=== PATIENT | male | born 1950 | race African-American/Black ===

== ENCOUNTER 2021-03-07 10:14 | Inpatient (IN) | payer OTHER ==
[~2021-03-07] VITALS: Ht 188 cm; Wt 101.2 kg
[2021-03-07] MEDS ORDERED: SODIUM CHLORIDE 0.9% 500 ML IVB ONE (10:45)
[2021-03-07 10:59] LABS: Urine Bacteria NONE SEEN /hpf (None Seen); Urine Blood 3+ /uL (Negative); Urine Mucus FEW (None Seen); Urine WBC 3636 /hpf (0 - 3); Urine WBC Clumps PRESENT /hpf (None Seen)
[2021-03-07 11:07] LABS: Urine Specific Gravity 1.018 (1.001-1.035)
[2021-03-07 11:19] LABS: Basophils # (auto) 0 10 ^3/uL (0-0.2); Basophils % (auto) 0.2 % (0.0-2.0); Eosinophils # (auto) 0 10 ^3/uL (0-0.8); Eosinophils % (auto) 0.1 % (0.0-7.0); Hematocrit 40.5 % (41.0-53.0); Hemoglobin 13.4 g/dL (13.5-17.5); Lymphocytes # (auto) 0.8 10 ^3/uL (0.4-5.4); Lymphocytes % (auto) 4.9 % (10.0-50.0); Mean Corpuscular Hemoglobin 28.7 pg (28.0-32.0); Mean Corpuscular Hgb Conc. 33.2 g/dL (32.0-36.0); Mean Corpuscular Volume 86.6 fL (80.0-100.0); Monocytes # (auto) 1.7 10 ^3/uL (0-1.3); Monocytes % (auto) 9.5 % (0.0-12.0); Neutrophils # (auto) 14.9 10 ^3/uL (1.6-8.6); Neutrophils % (auto) 85.3 % (37.0-80.0); Red Blood Cells 4.68 10^6/uL (4.5-5.90); Red Cell Distribution Width 14.4 % (11.8-14.3); White Blood Cell 17.4 10^3/uL (4.4-10.8)
[2021-03-07 11:27] LABS: Amphetamine Screen, Urine NEGATIVE (NEGATIVE); Barbiturate Scree,Urine NEGATIVE (NEGATIVE); Benzodiazephine Screen, Urine NEGATIVE (NEGATIVE); Cannabinoid Screen, Urine NEGATIVE (NEGATIVE); Cocaine Screen, Urine NEGATIVE (NEGATIVE); Opiate Scree,Urine NEGATIVE (NEGATIVE); Phencyclidine Screen, Urine NEGATIVE (NEGATIVE)
[2021-03-07 11:45] LABS: Albumin 2.4 g/dL (3.4-5.0); Anion Gap 6 (5-15); Blood Urea Nitrogen 43 mg/dL (7-18); Calcium 8.4 mg/dL (8.5-10.1); Carbon Dioxide 24 mmol/L (21-32); Chloride 101 mmol/L (98-107); Magnesium 2.4 mg/dL (1.6-2.6); Potassium 5.3 mmol/L (3.5-5.1); Sodium 131 mmol/L (136-145)
[2021-03-07 11:53] LABS: Alanine Aminotransferase 29 U/L (16-61); Alkaline Phosphatase 66 U/L (45-117); Aspartate Aminotransferase 69 U/L (15-37); BUN/Creatinine Ratio 22.1; Bilirubin, Total 0.6 mg/dL (0.2-1.0); Blood Alcohol < 3.0 mg/dL (0-5); GFR African American 44 mL/min; GFR Non-African American 36 mL/min; Glucose 106 mg/dL (74-106); Total Protein 7.7 g/dL (6.4-8.2)
[2021-03-07] MEDS ORDERED: cefTRIAXone 1GM/50ML D5W 50 ML IV ONE (12:00)
[2021-03-07] MEDS ORDERED: MORPHINE SULFATE INJECTION 2 MG/ML SYRG IV PRN ×3 (13:15→14:30)
[2021-03-07] MEDS ORDERED: NITROGLYCERIN 0.4 MG SL TAB SL PRN ×2 (13:15→14:30)
[2021-03-07] MEDS ORDERED: DOCUSATE SOD 100 MG CAP PO PRN (14:30)
[2021-03-07] MEDS ORDERED: hydrALAZINE HCL 20 MG/ML VL IV PRN (14:30)
[2021-03-07] MEDS ORDERED: ONDANSETRON HCL 4 MG/2 ML VIAL IV PRN (14:30)
[2021-03-07] MEDS ORDERED: ACETAMINOPHEN 325 MG TAB PO PRN (14:30)
[2021-03-07] MEDS ORDERED: InsuLIN REG 1unit/0.01ml Soln (100units/ml) IV ONE (14:30)
[2021-03-07] MEDS ORDERED: CALCIUM GLUC 1,000mg/50ml-NS 50 ML IV ONE (14:30)
[2021-03-07] MEDS ORDERED: FUROSEMIDE 20 MG/2 ML VIAL IV ONE (14:30)
[2021-03-07] MEDS ORDERED: DEXTROSE (50%) 50ML SYRG IV PRN (14:30)
[2021-03-07] MEDS ORDERED: SODIUM ZIRCONIUM CYCL 10 GM PAK PO ONE ×2 (14:30→15:45)
[2021-03-07] MEDS ORDERED: ALBUTEROL SULF 2.5 MG/0.5ML(0.5%) NEB SOLN NEB ONE (14:30)
[2021-03-07] MEDS ORDERED: ALUM & MAG HYDROX-SIMETH LIQ(MAALOX) 30 ML PO PRN (14:30)
[2021-03-07] MEDS ORDERED: DEXTROSE (50%) 50ML SYRG IV ONE (14:30)
[2021-03-07] MEDS ORDERED: LORazepam 0.5 MG TAB PO PRN (14:30)
[2021-03-07 15:51] LABS: Cholesterol 157 mg/dL (< 200); HDL Cholesterol 26 mg/dL (40-59); LDL Cholesterol 107 mg/dL (< 100); Triglycerides 126 mg/dL (< 150)
[2021-03-07] MEDS: SODIUM CHLORIDE 0.9% 1,000 ML IV SCH (16:19)
[2021-03-07] MEDS: ACCU-CHEK COMFORT CURVE STRIP VI SCH ×2 (17:00→22:06)
[2021-03-07] MEDS: InsuLIN REG 1unit/0.01ml Soln (100units/ml) SC SCH (17:00)
[2021-03-07 20:00] VITALS: BP 129/71
[2021-03-07] MEDS: HYDROcodone-ACET 5/325MG TAB PO PRN (20:14)
[2021-03-07] MEDS ORDERED: LORazepam 2MG/ML-1ML VIAL IV PRN (21:00)
[2021-03-07 21:46] LABS: Folate (Folic Acid) 13.75 ng/mL (5.38-24)
[2021-03-07 22:00] VITALS: BP 129/71
[2021-03-07] MEDS ORDERED: InsuLIN REG 1unit/0.01ml Soln (100units/ml) SC SCH (22:00)
[2021-03-07] MEDS: FAMOTIDINE (10MG/ML) 2ML VL IV SCH (22:06)
[2021-03-07] MEDS: ATORVASTATIN 20 MG TAB PO SCH (22:06)
[2021-03-08 04:48] VITALS: BP 122/60
[2021-03-08] MEDS: InsuLIN REG 1unit/0.01ml Soln (100units/ml) SC SCH (06:17)
[2021-03-08] MEDS: ACCU-CHEK COMFORT CURVE STRIP VI SCH (06:17)
[2021-03-08] MEDS: SODIUM CHLORIDE 0.9% 1,000 ML IV SCH ×2 (07:30→22:08)
[2021-03-08 08:11] LABS: Basophils # (auto) 0 10 ^3/uL (0-0.2); Basophils % (auto) 0.1 % (0.0-2.0); Eosinophils # (auto) 0.1 10 ^3/uL (0-0.8); Eosinophils % (auto) 0.8 % (0.0-7.0); Hematocrit 36.4 % (41.0-53.0); Hemoglobin 11.9 g/dL (13.5-17.5); Lymphocytes # (auto) 0.9 10 ^3/uL (0.4-5.4); Lymphocytes % (auto) 5.6 % (10.0-50.0); Mean Corpuscular Hemoglobin 28.1 pg (28.0-32.0); Mean Corpuscular Hgb Conc. 32.7 g/dL (32.0-36.0); Monocytes % (auto) 11.8 % (0.0-12.0); Neutrophils # (auto) 13.6 10 ^3/uL (1.6-8.6); Neutrophils % (auto) 81.7 % (37.0-80.0); Red Blood Cells 4.23 10^6/uL (4.5-5.90); Red Cell Distribution Width 14.5 % (11.8-14.3); White Blood Cell 16.7 10^3/uL (4.4-10.8)
[2021-03-08 08:28] LABS: INR 1.08 (0.9-1.15); Partial Thromboplastin Time 31.1 sec (23.0-31.2)
[2021-03-08 08:31] LABS: Albumin 2.2 g/dL (3.4-5.0); Anion Gap 9 (5-15); Blood Urea Nitrogen 35 mg/dL (7-18); Calcium 8.2 mg/dL (8.5-10.1); Carbon Dioxide 23 mmol/L (21-32); Chloride 105 mmol/L (98-107); Glucose 115 mg/dL (74-106); Magnesium 2.3 mg/dL (1.6-2.6); Potassium 3.2 mmol/L (3.5-5.1); Sodium 137 mmol/L (136-145)
[2021-03-08 08:37] LABS: Alanine Aminotransferase 32 U/L (16-61); Alkaline Phosphatase 63 U/L (45-117); Aspartate Aminotransferase 41 U/L (15-37); BUN/Creatinine Ratio 26.3; Bilirubin, Total 0.4 mg/dL (0.2-1.0); GFR African American 68 mL/min; GFR Non-African American 56 mL/min; Phosphorus 3.2 mg/dL (2.5-4.90); Total Protein 6.9 g/dL (6.4-8.2)
[2021-03-08 09:00] VITALS: BP 119/60
[2021-03-08] MEDS: cefTRIAXone 1GM/50ML D5W 50 ML IV SCH (09:50)
[2021-03-08] MEDS: FAMOTIDINE (10MG/ML) 2ML VL IV SCH (09:50)
[2021-03-08] MEDS: ASPirin 81 mg TAB PO SCH (09:50)
[2021-03-08] MEDS: ENOXAPARIN SOD 40 MG/0.4 ML SYRINGE SC SCH (09:51)
[2021-03-08] MEDS: HYDROcodone-ACET 5/325MG TAB PO PRN (09:52)
[2021-03-08] MEDS ORDERED: POTASSIUM CHL 20 Meq TABLET PO ONE (11:00)
[2021-03-08] MEDS ORDERED: ERGOCALCIFEROL 50,000 UNIT(1.25MG) CAP PO SCH (11:00)
[2021-03-08 13:02] VITALS: BP 109/59
[2021-03-08 17:00] VITALS: BP 118/60
[2021-03-08] MEDS: TAMSULOSIN HYDROCHLORIDE 0.4 MG CAP PO SCH (18:27)
[2021-03-08 22:00] VITALS: BP 133/67
[2021-03-08] MEDS: ATORVASTATIN 20 MG TAB PO SCH (22:05)
[2021-03-09 05:00] VITALS: BP 125/66
[2021-03-09 05:26] LABS: Basophils # (auto) 0 10 ^3/uL (0-0.2); Basophils % (auto) 0.4 % (0.0-2.0); Eosinophils # (auto) 0.1 10 ^3/uL (0-0.8); Eosinophils % (auto) 0.6 % (0.0-7.0); Hematocrit 36.2 % (41.0-53.0); Hemoglobin 12.2 g/dL (13.5-17.5); Lymphocytes # (auto) 1.1 10 ^3/uL (0.4-5.4); Lymphocytes % (auto) 9.5 % (10.0-50.0); Mean Corpuscular Hemoglobin 29.4 pg (28.0-32.0); Mean Corpuscular Hgb Conc. 33.7 g/dL (32.0-36.0); Mean Corpuscular Volume 87.1 fL (80.0-100.0); Monocytes # (auto) 1.1 10 ^3/uL (0-1.3); Monocytes % (auto) 10.1 % (0.0-12.0); Neutrophils # (auto) 8.7 10 ^3/uL (1.6-8.6); Neutrophils % (auto) 79.4 % (37.0-80.0); Red Blood Cells 4.15 10^6/uL (4.5-5.90); Red Cell Distribution Width 14.2 % (11.8-14.3)
[2021-03-09 05:45] LABS: BUN/Creatinine Ratio 26.3; Calcium 8.4 mg/dL (8.5-10.1); Potassium 3.4 mmol/L (3.5-5.1)
[2021-03-09] MEDS: cefTRIAXone 1GM/50ML D5W 50 ML IV SCH (10:17)
[2021-03-09] MEDS: ASPirin 81 mg TAB PO SCH (10:17)
[2021-03-09] MEDS: ENOXAPARIN SOD 40 MG/0.4 ML SYRINGE SC SCH (10:18)
[2021-03-09] MEDS: HYDROcodone-ACET 5/325MG TAB PO PRN (10:22)
[2021-03-09] MEDS ORDERED: POTASSIUM CHL 20 Meq TABLET PO ONE (10:45)
[2021-03-09] MEDS ORDERED: FINASTERIDE 5 MG TAB PO ONE (10:45)
[2021-03-09 13:03] VITALS: BP 127/53
[2021-03-09] MEDS: SODIUM CHLORIDE 0.9% 1,000 ML IV SCH (16:30)
[2021-03-09 17:07] VITALS: BP 121/45
[2021-03-09] MEDS: TAMSULOSIN HYDROCHLORIDE 0.4 MG CAP PO SCH (17:32)
[2021-03-09 20:00] VITALS: BP 137/65
[2021-03-09 22:00] VITALS: BP 137/65
[2021-03-09] MEDS: ATORVASTATIN 20 MG TAB PO SCH (22:02)
[2021-03-09] MEDS: DONEPEZIL HYDROCHLORIDE 5 MG TAB PO SCH (23:22)
[2021-03-10 05:00] VITALS: BP 151/71
[2021-03-10 07:06] LABS: Basophils # (auto) 0.1 10 ^3/uL (0-0.2); Basophils % (auto) 0.6 % (0.0-2.0); Eosinophils # (auto) 0.1 10 ^3/uL (0-0.8); Hematocrit 36.8 % (41.0-53.0); Hemoglobin 12.5 g/dL (13.5-17.5); Lymphocytes # (auto) 1.1 10 ^3/uL (0.4-5.4); Mean Corpuscular Hemoglobin 29.1 pg (28.0-32.0); Mean Corpuscular Volume 85.6 fL (80.0-100.0); Monocytes # (auto) 1.3 10 ^3/uL (0-1.3); Monocytes % (auto) 11.5 % (0.0-12.0); Neutrophils # (auto) 8.5 10 ^3/uL (1.6-8.6); Neutrophils % (auto) 76.9 % (37.0-80.0); Nucleated Red Blood Cells % 0.4 %; Red Cell Distribution Width 14.4 % (11.8-14.3)
[2021-03-10 07:32] LABS: Calcium 8.4 mg/dL (8.5-10.1); Potassium 3.8 mmol/L (3.5-5.1)
[2021-03-10] MEDS: cefTRIAXone 1GM/50ML D5W 50 ML IV SCH (08:49)
[2021-03-10] MEDS: SODIUM CHLORIDE 0.9% 1,000 ML IV SCH (08:49)
[2021-03-10] MEDS: ASPirin 81 mg TAB PO SCH (08:50)
[2021-03-10] MEDS: ENOXAPARIN SOD 40 MG/0.4 ML SYRINGE SC SCH (08:50)
[2021-03-10] MEDS: FINASTERIDE 5 MG TAB PO SCH (08:50)
[2021-03-10 09:00] VITALS: BP 149/69
[2021-03-10] MEDS ORDERED: AMLO-496 PO (10:10)
[2021-03-10] MEDS ORDERED: METF-370 PO (10:10)
[2021-03-10] MEDS ORDERED: TAMS0.4C36 PO (10:10)
[2021-03-10] MEDS ORDERED: ATOR-47 PO (10:10)
[2021-03-10] MEDS ORDERED: IOHEXOL 300 MG/ML 100ML BOTTLE IJ ONE (16:30)
[2021-03-10] MEDS: TAMSULOSIN HYDROCHLORIDE 0.4 MG CAP PO SCH (18:37)
[2021-03-10 22:00] VITALS: BP 135/69
[2021-03-10] MEDS: DONEPEZIL HYDROCHLORIDE 5 MG TAB PO SCH (23:24)
[2021-03-10] MEDS: ATORVASTATIN 20 MG TAB PO SCH (23:25)
[2021-03-11 05:00] VITALS: BP 146/61
[2021-03-11] MEDS: SODIUM CHLORIDE 0.9% 1,000 ML IV SCH (05:59)
[2021-03-11] MEDS: ASPirin 81 mg TAB PO SCH (08:22)
[2021-03-11] MEDS: ENOXAPARIN SOD 40 MG/0.4 ML SYRINGE SC SCH (08:22)
[2021-03-11] MEDS: cefTRIAXone 1GM/50ML D5W 50 ML IV SCH (08:22)
[2021-03-11] MEDS: FINASTERIDE 5 MG TAB PO SCH (08:23)
[2021-03-11 09:00] VITALS: BP 150/74
[2021-03-11 13:00] VITALS: BP 133/80
[2021-03-11] MEDS: HYDROcodone-ACET 5/325MG TAB PO PRN (14:10)
== END 2021-03-11 16:30 | disposition home health service (06) | DRG 871 ==
LOC: ER 10:14 → TELE 13:07 → TELE-CENTR 18:01
PROVIDERS: ADMIT Hospitalist; ATTEND Internal Medicine
PROC: 05HB33Z Insertion of Infusion Device into Right Basilic Vein, Percutaneous Approach (ICD-10-PCS; principal; 2021-03-10)
PROC: B54MZZA Ultrasonography of Right Upper Extremity Veins, Guidance (ICD-10-PCS; 2021-03-10)
DX: A41.51 Sepsis due to Escherichia coli [E. coli] (principal); I63.9 Cerebral infarction, unspecified; N17.0 Acute kidney failure with tubular necrosis; G92 Toxic encephalopathy; N10 Acute pyelonephritis; R29.6 Repeated falls; N18.32 Chronic kidney disease, stage 3b; E87.5 Hyperkalemia; E87.6 Hypokalemia; F02.80 Dementia in other diseases classified elsewhere, unspecified severity, without behavioral disturbance, psychotic disturbance, mood disturbance, and anxiety; G30.9 Alzheimer's disease, unspecified; G89.29 Other chronic pain; Z20.822 Contact with and (suspected) exposure to COVID-19; M54.5 Low back pain; R97.20 Elevated prostate specific antigen [PSA]; I12.9 Hypertensive chronic kidney disease with stage 1 through stage 4 chronic kidney disease, or unspecified chronic kidney disease; N28.1 Cyst of kidney, acquired; C61 Malignant neoplasm of prostate; N40.0 Benign prostatic hyperplasia without lower urinary tract symptoms; E11.22 Type 2 diabetes mellitus with diabetic chronic kidney disease; E78.5 Hyperlipidemia, unspecified; M47.9 Spondylosis, unspecified; Z79.4 Long term (current) use of insulin; Z86.73 Personal history of transient ischemic attack (TIA), and cerebral infarction without residual deficits; Z79.82 Long term (current) use of aspirin; Z79.899 Other long term (current) drug therapy; Z82.0 Family history of epilepsy and other diseases of the nervous system; Z82.3 Family history of stroke; Z82.49 Family history of ischemic heart disease and other diseases of the circulatory system; Z83.3 Family history of diabetes mellitus
CPT/HCPCS: 36415; 70450; 70551; 71045; 72131; 74177; 76775; 80048; 80053; 80061; 80307; 80320; 81001; 82306; 82607; 82746; 82962; 83036; 83605; 83735; 83880; 83970; 84100; 84154; 84443; 84484; 85025; 85610; 85730; 87040; 87086; 87088; 87186; 87426; 93005; 93306; 93886; 94640; 96361; 96365; 96367; 96375; G0378; J0696; J1815; J3490